=== PATIENT | male | born 1955 | race Caucasian/White ===

== ENCOUNTER 2017-07-04 11:27 | Inpatient (IN) | payer BC, OTHER ==
[2017-07-04] MEDS ORDERED: TUSSIONEX PENNKINETIC SUSP PO PRN (13:19)
[2017-07-04] MEDS ORDERED: NS 1/2 1000 ML IV 1,000 ML IV ONE (13:30)
[2017-07-04] MEDS: LEVAQUIN PREMIX IV 750 MG 750 MG/150 ML BAG IV SCH (13:53)
[2017-07-04] MEDS: NS 1/2 1000 ML IV 1,000 ML IV SCH (13:53)
[2017-07-04 13:54] LABS: BASOPHILS % (AUTO) 0.5 % (0.2-1.0); EOSINOPHILS # (AUTO) 0.5 x10^3/uL (0.0-0.2); EOSINOPHILS % (AUTO) 5.5 % (0.9-2.9); HEMATOCRIT 31.6 % (42.0-54.0); HEMOGLOBIN 10.9 g/dL (13.5-18.0); LYMPHOCYTES # (AUTO) 1.3 X10^3/uL (1.3-2.9); LYMPHOCYTES % (AUTO) 13.9 % (21.0-51.0); MEAN CORPUSCULAR HEMOGLOBIN 32.2 pg (27.0-34.0); MEAN CORPUSCULAR HGB CONC 34.5 g/dL (33.0-35.0); MEAN CORPUSCULAR VOLUME 93.4 fL (80.0-100.0); MEAN PLATELET VOLUME 7.2 fL (7.4-11.0); MONOCYTES # (AUTO) 0.9 x10^3/uL (0.3-0.8); MONOCYTES % (AUTO) 10.1 % (0.0-13.0); NEUTROPHILS # (AUTO) 6.5 x10^3/uL (2.2-4.8); PLATELET COUNT 239 X10^3/uL (150.0-450.0); RED BLOOD COUNT 3.38 X10^6/uL (4.7-6.0); RED CELL DISTRIBUTION WIDTH 13.6 % (11.6-16.5); WHITE BLOOD COUNT 9.3 X10^3/uL (3.6-10.0)
[2017-07-04] MEDS: FORTAZ or TAZICEF INJ 1 GM in NS 100 ML IV + SPIKE MINIBAG* 100 ML IV SCH ×2 (13:54→21:07)
[2017-07-04 14:03] LABS: ALANINE AMINOTRANSFERASE 14 Units/L (12-78); ALBUMIN 2.2 g/dL (3.4-5.0); ALKALINE PHOSPHATASE 116 Units/L (46-116); ASPARTATE AMINO TRANSFERASE 15 Units/L (15-37); BLOOD UREA NITROGEN 16 mg/dL (7-18); CALCIUM 9.2 mg/dL (8.5-10.1); CARBON DIOXIDE 28.2 mmol/L (21-32); CHLORIDE 102 mmol/L (98-107); COR CA(FOR HYPOALB) 10.6 mg/dL (8.5-10.1); COR NA(FOR HYPERGLY) 138 mmol/L (136-145); CREATININE 1.25 mg/dL (0.70-1.30); SODIUM 137 mmol/L (136-145); TOTAL PROTEIN 6.8 g/dL (6.4-8.2); eGFR BLACK RACES > 60 (>60); eGFR NON BLACK RACES > 60 (>60)
[2017-07-04] MEDS ORDERED: SALINE 3% 15 ML NEB TX ONE (14:14)
[2017-07-04 14:47] VITALS: BMI 30.2
[2017-07-04] MEDS ORDERED: PREVNAR 13 IM ONE (14:47)
[2017-07-04] MEDS ORDERED: FLUVIRIN IM ONE (14:47)
[2017-07-04] MEDS: DUONEB 0.5 MG/3 MG NEB SCH ×4 (16:38→20:45)
[2017-07-04] MEDS: ROBITUSSIN DM PO SCH ×2 (18:22→20:44)
--- NOTE | 2017-07-04 20:56 | DR.UPDATE ---
H&P Update History and Physical Update: WAS SEEN IN THE OFFICE TODAY. A H&P WAS COMPLETED PRIOR TO ADMISSION. PATIENT HAS BEEN SEEN AND EXAMINED WITH NO CHANGES NOTED TO H&P. Changes noted: NO Yes with the following:
[2017-07-05] MEDS: DUONEB 0.5 MG/3 MG NEB SCH ×6 (01:30→21:01)
[2017-07-05] MEDS: FORTAZ or TAZICEF INJ 1 GM in NS 100 ML IV + SPIKE MINIBAG* 100 ML IV SCH ×3 (05:00→22:27)
[2017-07-05] MEDS ORDERED: NS 1/2 1000 ML IV 1,000 ML IV ONE ×2 (05:06→17:12)
[2017-07-05] MEDS: NS 1/2 1000 ML IV 1,000 ML IV SCH ×2 (05:07→18:16)
[2017-07-05 06:09] LABS: BASOPHILS # (AUTO) 0.1 X10^3/uL (0.0-0.1); BASOPHILS % (AUTO) 0.6 % (0.2-1.0); EOSINOPHILS # (AUTO) 0.3 x10^3/uL (0.0-0.2); HEMATOCRIT 28.8 % (42.0-54.0); HEMOGLOBIN 9.9 g/dL (13.5-18.0); LYMPHOCYTES # (AUTO) 1.1 X10^3/uL (1.3-2.9); LYMPHOCYTES % (AUTO) 11.7 % (21.0-51.0); MEAN CORPUSCULAR HEMOGLOBIN 32.4 pg (27.0-34.0); MEAN CORPUSCULAR HGB CONC 34.6 g/dL (33.0-35.0); MEAN CORPUSCULAR VOLUME 93.6 fL (80.0-100.0); MEAN PLATELET VOLUME 7.5 fL (7.4-11.0); MONOCYTES # (AUTO) 1.1 x10^3/uL (0.3-0.8); MONOCYTES % (AUTO) 11.7 % (0.0-13.0); NEUTROPHILS # (AUTO) 6.8 x10^3/uL (2.2-4.8); PLATELET COUNT 216 X10^3/uL (150.0-450.0); RED BLOOD COUNT 3.07 X10^6/uL (4.7-6.0); RED CELL DISTRIBUTION WIDTH 13.5 % (11.6-16.5); WHITE BLOOD COUNT 9.3 X10^3/uL (3.6-10.0)
[2017-07-05 06:23] LABS: ALANINE AMINOTRANSFERASE 13 Units/L (12-78); ALBUMIN 1.8 g/dL (3.4-5.0); ALKALINE PHOSPHATASE 102 Units/L (46-116); ASPARTATE AMINO TRANSFERASE 16 Units/L (15-37); BLOOD UREA NITROGEN 18 mg/dL (7-18); CALCIUM 8.5 mg/dL (8.5-10.1); CARBON DIOXIDE 27.1 mmol/L (21-32); CHLORIDE 101 mmol/L (98-107); COR CA(FOR HYPOALB) 10.3 mg/dL (8.5-10.1); COR NA(FOR HYPERGLY) 135 mmol/L (136-145); CREATININE 1.11 mg/dL (0.70-1.30); SODIUM 135 mmol/L (136-145); eGFR BLACK RACES > 60 (>60); eGFR NON BLACK RACES > 60 (>60)
--- NOTE | 2017-07-05 06:25 | RAD ---
HISTORY: Shortness of breath Study: Chest AP portable Comparison: 07/04/2017 Findings: The heart is within normal limits in size. The janet are normal. The lungs are free of acute infiltrat es. No pleural effusions are identified. The bony thorax is unremarkable. IMPRESSION: No significant abnormality identified Reported By:
[2017-07-05] MEDS: ROBITUSSIN DM PO SCH ×4 (08:18→20:23)
[2017-07-05] MEDS: LEVAQUIN PREMIX IV 750 MG 750 MG/150 ML BAG IV SCH (08:18)
[2017-07-05] MEDS ORDERED: LASIX PO PRN (10:26)
[2017-07-05] MEDS ORDERED: PATIENT'S HOME MEDICATION (Benzonatate [Benzonatate] 1 CAP) PO SCH (10:30)
[2017-07-05] MEDS: ATARAX TAB 25 MG PO SCH (10:55)
[2017-07-05] MEDS: SINGULAIR TAB 10 MG PO SCH (10:56)
[2017-07-05] MEDS: NAPROSYN PO SCH ×2 (10:56→20:21)
[2017-07-05] MEDS: CYMBALTA PO SCH (10:59)
[2017-07-05] MEDS: LIPITOR TAB 20 MG PO SCH (10:59)
[2017-07-05] MEDS: NEURONTIN CAP 400 MG PO SCH (11:09)
[2017-07-05] MEDS ORDERED: GLUCOPHAGE ONE (19:30)
[2017-07-05] MEDS: LOPRESSOR TAB 50 MG PO SCH (20:21)
[2017-07-05] MEDS ORDERED: ZANAFLEX PO SCH (21:00)
[2017-07-05] MEDS ORDERED: GLUCOPHAGE PO SCH (21:00)
[2017-07-05] MEDS ORDERED: NEURONTIN CAP 400 MG PO SCH (21:00)
[2017-07-06] MEDS: DUONEB 0.5 MG/3 MG NEB SCH ×4 (00:17→12:07)
[2017-07-06] MEDS: FORTAZ or TAZICEF INJ 1 GM in NS 100 ML IV + SPIKE MINIBAG* 100 ML IV SCH (05:39)
[2017-07-06 06:08] LABS: BASOPHILS % (AUTO) 0.4 % (0.2-1.0); EOSINOPHILS # (AUTO) 0.5 x10^3/uL (0.0-0.2); EOSINOPHILS % (AUTO) 6.7 % (0.9-2.9); HEMATOCRIT 28.4 % (42.0-54.0); HEMOGLOBIN 9.9 g/dL (13.5-18.0); LYMPHOCYTES # (AUTO) 1.3 X10^3/uL (1.3-2.9); LYMPHOCYTES % (AUTO) 16.3 % (21.0-51.0); MEAN CORPUSCULAR HEMOGLOBIN 32.8 pg (27.0-34.0); MEAN CORPUSCULAR HGB CONC 34.8 g/dL (33.0-35.0); MEAN CORPUSCULAR VOLUME 94.1 fL (80.0-100.0); MEAN PLATELET VOLUME 7.5 fL (7.4-11.0); MONOCYTES # (AUTO) 0.9 x10^3/uL (0.3-0.8); MONOCYTES % (AUTO) 11.8 % (0.0-13.0); NEUTROPHILS # (AUTO) 5.1 x10^3/uL (2.2-4.8); NEUTROPHILS % (AUTO) 64.8 % (42.0-75.0); PLATELET COUNT 199 X10^3/uL (150.0-450.0); RED BLOOD COUNT 3.02 X10^6/uL (4.7-6.0); RED CELL DISTRIBUTION WIDTH 13.7 % (11.6-16.5); WHITE BLOOD COUNT 7.8 X10^3/uL (3.6-10.0)
[2017-07-06 06:42] LABS: ALANINE AMINOTRANSFERASE 11 Units/L (12-78); ALBUMIN 1.8 g/dL (3.4-5.0); ALKALINE PHOSPHATASE 96 Units/L (46-116); ASPARTATE AMINO TRANSFERASE 18 Units/L (15-37); BLOOD UREA NITROGEN 17 mg/dL (7-18); CALCIUM 8.3 mg/dL (8.5-10.1); CARBON DIOXIDE 24.9 mmol/L (21-32); CHLORIDE 101 mmol/L (98-107); COR CA(FOR HYPOALB) 10.1 mg/dL (8.5-10.1); COR NA(FOR HYPERGLY) 136 mmol/L (136-145); CREATININE 1.39 mg/dL (0.70-1.30); SODIUM 136 mmol/L (136-145); TOTAL PROTEIN 6.1 g/dL (6.4-8.2); eGFR BLACK RACES > 60 (>60); eGFR NON BLACK RACES 55 (>60)
--- NOTE | 2017-07-06 07:16 | RAD ---
HISTORY: Chest congestion Study: Chest AP portable Comparison: 07/05/2017 Findings: The heart is within normal limits in size. The janet are normal. The lungs are free of acute alveolar infiltrates. No pleural effusions are identified. The bony thorax is unremarkable. IMPRESSION: No significant abnormality identified Reported By:
[2017-07-06] MEDS ORDERED: FLOMAX PO SCH (09:00)
[2017-07-06] MEDS ORDERED: ASPIRIN EC 81 MG PO SCH (09:00)
[2017-07-06] MEDS: NS 1/2 1000 ML IV 1,000 ML IV SCH (09:40)
[2017-07-06] MEDS: LEVAQUIN PREMIX IV 750 MG 750 MG/150 ML BAG IV SCH (09:42)
[2017-07-06] MEDS: SINGULAIR TAB 10 MG PO SCH (09:42)
[2017-07-06] MEDS: LIPITOR TAB 20 MG PO SCH (09:42)
[2017-07-06] MEDS: NEURONTIN CAP 400 MG PO SCH ×2 (09:43→12:30)
[2017-07-06] MEDS: ROBITUSSIN DM PO SCH ×2 (09:43→12:31)
[2017-07-06] MEDS: ATARAX TAB 25 MG PO SCH (09:43)
[2017-07-06] MEDS: NAPROSYN PO SCH (09:43)
[2017-07-06] MEDS: LOPRESSOR TAB 50 MG PO SCH (09:43)
[2017-07-06] MEDS: CYMBALTA PO SCH (09:46)
--- NOTE | 2017-07-06 11:14 | PCM.PROG ---
Progress Note - Progress Note for Day of Date: 07/05/17 - Subjective Subjective: IS BEING TREATED FOR BRONCHOPNEUMONIA. TODAY, HE IS ALERT AND ORIENTED, SITTING UP IN BED ON MORNING ROUNDS. HE CONTINUES WITH A NON- PRODUCTIVE COUGH AND SHORTNESS OF BREATH. ON EXAMINATION, HEART IS REGULAR IN RATE AND RHYTHM. BILATERAL LUNGS ARE NOTED WITH WHEEZING AND RHONCHI THROUGHOUT. ABDOMEN IS ROUND, SOFT, AND NON-TENDER WITH NORMAL BOWEL SOUNDS NOTED IN ALL QUADRANTS. THERE IS NORMAL RANGE OF MOTION NOTED TO ALL EXTREMITIES. HIS VITALS THIS MORNING ARE 98.3-100-20-94%-176/86. LABS WERE OBTAINED THIS MORNING. ABNORMAL LAB VALUES INCLUDE THE FOLLOWING: RBC 3.07, HGB 9.9, HCT 28.8, SODIUM 135, GLUCOSE 118, TOTAL PROTEIN 6.0, ALBUMIN 1.8. SPUTUM CULTURE AND BLOOD CULTURES ARE PENDING. CHEST XRAY THIS MORNING IS STABLE. WE WILL CONTINUE WITH IV ANTIBIOTICS AND RESPIRATORY TREATMENTS TODAY. WE PLAN TO FOLLOW UP WITH AM LABS AND CONTINUE TO MONITOR PATIENT. - Past Medical Family Social History Past Med/Fam/Surg Hx: No changes since H&P Allergies: Allergies No Known Drug Allergies Allergy (Verified 07/04/17 13:11) - Review of Systems ROS: No change since H&P - Vital Signs and I&O's Vital Signs: Temperature 98.5 F Pulse Rate [Right Brachial] 83 Pulse Rate 83 Respiratory Rate 20 Blood Pressure [Right Arm] 157/93 Blood Pressure [Left Arm] 99/72 Blood Pressure 99/72 O2 Sat by Pulse Oximetry 96 Intake and Output: Intake & Output 07/03/17 07/04/17 07/05/17 07/06/17 11:59 11:59 11:59 11:59 Intake Total 1820 3500 Output Total 375 1595 Balance 1445 1905 - Physical Exam Oriented: Normal Eyes: Normal Ear: Normal Nose: Normal Throat: Normal Respiratory: Generalized, Wheezes, Rhonchi : Normal Auscultation: Bowel Sounds: Normal Palpation: Normal Tenderness: Normal Skin: Normal Musculoskeletal: Normal Psychiatric: Normal Mood Description: Calm Affect: Normal Speech Pattern: Clear, Appropriate - Laboratory and Diagnostics Result Diagrams: 07/06/17 05:15 07/06/17 05:15 Labs: 07/04/17 14:45 Sputum - Expectorated Sputum Sputum Culture - Final 07/04/17 14:45 Sputum - Expectorated Sputum - Final 07/04/17 13:38 Blood Blood Culture - Preliminary 07/04/17 13:35 Blood Blood Culture - Preliminary Laboratory WBC 7.8 X10^3/uL (3.6-10.0) 07/06/17 05:15 RBC 3.02 X10^6/uL (4.7-6.0) L 07/06/17 05:15 Hgb 9.9 g/dL (13.5-18.0) L 07/06/17 05:15 Hct 28.4 % (42.0-54.0) L 07/06/17 05:15 MCV 94.1 fL (80.0-100.0) 07/06/17 05:15 MCH 32.8 pg (27.0-34.0) 07/06/17 05:15 MCHC 34.8 g/dL (33.0-35.0) 07/06/17 05:15 RDW 13.7 % (11.6-16.5) 07/06/17 05:15 Plt Count 199 X10^3/uL (150.0-450.0) 07/06/17 05:15 MPV 7.5 fL (7.4-11.0) 07/06/17 05:15 Neut % 64.8 % (42.0-75.0) 07/06/17 05:15 Lymph % 16.3 % (21.0-51.0) L 07/06/17 05:15 [place]on % 11.8 % (0.0-13.0) 07/06/17 05:15 Eos % 6.7 % (0.9-2.9) H 07/06/17 05:15 Baso % 0.4 % (0.2-1.0) 07/06/17 05:15 Neut # 5.1 x10^3/uL (2.2-4.8) H 07/06/17 05:15 Lymph # 1.3 X10^3/uL (1.3-2.9) 07/06/17 05:15 [place]on # 0.9 x10^3/uL (0.3-0.8) H 07/06/17 05:15 Eos # 0.5 x10^3/uL (0.0-0.2) H 07/06/17 05:15 Baso # 0.0 X10^3/uL (0.0-0.1) 07/06/17 05:15 Absolute Nucleated RBC 0.1 /100WBC 07/06/17 05:15 Sodium 136 mmol/L (136-145) 07/06/17 05:15 Corrected Sodium 136 mmol/L (136-145) 07/06/17 05:15 Potassium 4.5 mmol/L (3.5-5.1) 07/06/17 05:15 Chloride 101 mmol/L (98-107) 07/06/17 05:15 Carbon Dioxide 24.9 mmol/L (21-32) 07/06/17 05:15 BUN 17 mg/dL (7-18) 07/06/17 05:15 Creatinine 1.39 mg/dL (0.70-1.30) H 07/06/17 05:15 Est GFR (MDRD) Af Amer > 60 (>60) 07/06/17 05:15 Est GFR (MDRD) Non-Af 55 (>60) L 07/06/17 05:15 Glucose 112 mg/dL (65-99) H 07/06/17 05:15 POC Glucose (mg/dL) 126 mg/dL (65-99) H 07/06/17 05:31 Calcium 8.3 mg/dL (8.5-10.1) L 07/06/17 05:15 Corrected Calcium 10.1 mg/dL (8.5-10.1) 07/06/17 05:15 Total Bilirubin 0.40 mg/dL (0.2-1.0) 07/06/17 05:15 AST 18 Units/L (15-37) 07/06/17 05:15 ALT 11 Units/L (12-78) L 07/06/17 05:15 Alkaline Phosphatase 96 Units/L (46-116) 07/06/17 05:15 Total Protein 6.1 g/dL (6.4-8.2) L 07/06/17 05:15 Albumin 1.8 g/dL (3.4-5.0) L 07/06/17 05:15 Globulin 4.3 g/dL (2.5-4.5) 07/06/17 05:15 Albumin/Globulin Ratio 0.4 Ratio (1.1-2.1) L 07/06/17 05:15 Influenza Type A (PCR) Negative (NEGATIVE) 07/04/17 14:22 Influenza Type B (PCR) Negative (NEGATIVE) 07/04/17 14:22 - Plan (1) Bronchopneumonia Status: Acute Plan: PNEUMONIA PROTOCOL, IV ANTIBIOTICS, RESPIRATORY TREATMENTS, CONTINUE TO MONITOR
[2017-07-06] MEDS ORDERED: CATAPRES TAB 0.1 MG PO ONE (12:20)
[2017-07-06 14:18] VITALS: BP 180/98
== END 2017-07-06 13:20 | disposition home or self-care (01) | DRG 195 ==
LOC: MED/SURG 11:27 → UNDOADMIN 11:27 → MED/SURG 12:30
PROVIDERS: ADMIT Internal Medicine; ATTEND Internal Medicine
DX: J18.0 Bronchopneumonia, unspecified organism (principal); R06.02 Shortness of breath; I10 Essential (primary) hypertension; E11.65 Type 2 diabetes mellitus with hyperglycemia; E78.2 Mixed hyperlipidemia
CPT/HCPCS: 36415; 71045; 80053; 85025; 87040; 87070; 87205; 87502; 94640; A4222; J0713; J1956; J7620

== ENCOUNTER 2017-07-09 08:46 | Emergency (ER) | payer OTHER ==
[2017-07-09 08:57] LABS: ABG ALLEN TEST POS; ABG BASE EXCESS -9.7 mmol/L (-2.0-2.0); ABG HCO3 16.6 mmol/L (22-26)
[2017-07-09] MEDS ORDERED: SOLU-Medrol 125 MG VIAL IVP ONE (08:57)
[2017-07-09] MEDS ORDERED: DUONEB 0.5 MG/3 MG NEB ONE (08:57)
[2017-07-09 08:58] VITALS: BMI 30.2
[2017-07-09] MEDS ORDERED: DUONEB 0.5 MG/3 MG ONE (09:00)
[2017-07-09] MEDS ORDERED: NS 1000 ML 1,000 ML IV SCH (09:00)
--- NOTE | 2017-07-09 09:00 | DR.SOBA ---
HPI - Time Seen Time seen: 08:50 - HPI Comment HPI Comment: PATIENT WITH RECENT PNEUMONIA WAS HOSPITALIZE AND DISCHARGE HOME SUNDAY. WORSE LAST NIGHT. CONFUSE TODAY. STOP BREATHING FOR FEW MINUTES ON HIS WAY TO ED. O2 SAT IN 70S ON NR. SOB. HAD INFLUENZA MAY THIS YEAR AND IS NOT FULLY RECOVER FROM IF. - Complaints Chief Complaint Doctors Comments: SOB, BRIEF RESPIRATORY ARREST DURING TRANSPORT. - Reviewed Nurses Notes Reviewed: Yes - Source History Provided: Patient, Family Member, EMS - Mode of Arrival Mode of Arrival: Stretcher - Duration Duration: Weeks - Context Onset:: At Rest PE Risk Factors:: None Currently on:: Inhaled Bronchodilators Prehospital Care:: Inhaled B2 - Modifying Factors Worsens:: Nothing Improves:: Nothing - Associated Signs and Symptoms Associated Signs and Symptoms: Cough, Chest Pain - If Chest Pain Quality: Sharp Location: Substernal - If Cough Cough: Yellow PMH - PMH Past Medical History: Diabetes, Dyslipidemia, Hypertension, Kidney Stones Past Surgical History: Yes Surgical History: Ortho Surgery, Tonsillectomy, Other - Family History Family Medical History: Diabetes Mellitus, Hypertension - Social History Do you use any recreational Drugs:: No ROS - Review of Systems Constitutional: Diaphoresis, Weakness, Fatigue. negative: Chills, Fever Eyes: negative: Eye Pain, Discharge ENTM: Nose Discharge, Nose Congestion. negative: Ear Pain, Throat Pain Respiratoy: Productive Cough, Short of Breath, Wheezing. negative: Hemoptysis Gastrointestinal/Abdominal: Abdominal Pain, Diarrhea, Nausea, Vomiting Genitourinary: negative: Dysuria, Frequency, Hematuria Neurological: Weakness, Dizziness Musculoskeletal: Muscle Pain Integumentary: Dryness Hematologic/Lymphatic: No Symptoms Reported Endocrine: No Symptoms Reported All Other Systems: Reviewed and Negative PE - Vital Signs Vitals: Temperature 97.5 F Pulse Rate [Apical] 80 Pulse Rate 86 Respiratory Rate 25 Blood Pressure [Right Arm] 115/71 Blood Pressure [Left Arm] 172/95 Blood Pressure 223/125 O2 Sat by Pulse Oximetry 99 - General General Appearance: Alert, In No Apparent Distress - Head Head Exam: Normal Inspection - Eyes Eye exam: Normal Appearance - ENT ENT Exam: Normal External Ear Exam - Neck Neck Exam: Trachea Midline. negative: Tenderness, Meningismus, Lymphadenopathy - Chest Chest Inspection: Symmetric Chest Wall Rise - Respiratory Respiratory Exam: Respiratory Distress Respiratory Exam: Bilateral Wheezing, Bilateral Rhonchi, Upper Wheezing, Upper Rhonchi, Lower Wheezing, Lower Rhonchi - Cardiovascular Cardiovascular Exam: Regular Rate, Normal Rhythm, Normal Heart Sounds - Abdominal Exam Abdominal Exam: Normal Bowel Sounds, Soft. negative: Tenderness - Extremities Extremities Exam: Edema (TRACE4) - Back Back Exam: Normal Inspection - Neurologic Neurological Exam: Alert, Oriented X3, Other MDM - Additional Information Obtained Additional Information Obtained From: Family - Differential Diagnosis Differential Diagnosis: Bronchitis, CHF, COPD, Mycardial Infarction, Pneumonia, Respiratory Insufficiency Differential Diagnosis Comment:: SEPSIS Course - Treatment Treatment: NEB TREATMENT AND SOLUMEDROL IN ED. 50% O2 AT 95% SAT. CEFTAZIDINE AND ZOSYN GIVEN IN ED. - Consultation Consultation Comments: DISCUSS PATIENT WITH [facility]. HE ACCEPTED PATIENT FOR TRANSFER. - Education/Counseling Education/Counseling: Patient, Family, Education Educated On: Treatment, Diagnosis ROR - Labs Reviewed Laboratory Results Reviewed?: Yes Result Diagrams: 07/09/17 09:00 07/09/17 09:00 Laboratory: 07/09/17 10:56 Sputum - Expectorated Sputum - Final WBC 14.1 X10^3/uL (3.6-10.0) H 07/09/17 09:00 RBC 3.19 X10^6/uL (4.7-6.0) L 07/09/17 09:00 Hgb 10.3 g/dL (13.5-18.0) L 07/09/17 09:00 Hct 30.8 % (42.0-54.0) L 07/09/17 09:00 MCV 96.6 fL (80.0-100.0) 07/09/17 09:00 MCH 32.2 pg (27.0-34.0) 07/09/17 09:00 MCHC 33.4 g/dL (33.0-35.0) 07/09/17 09:00 RDW 13.5 % (11.6-16.5) 07/09/17 09:00 Plt Count 265 X10^3/uL (150.0-450.0) 07/09/17 09:00 MPV 7.4 fL (7.4-11.0) 07/09/17 09:00 Neut % 80.5 % (42.0-75.0) H 07/09/17 09:00 Lymph % 10.8 % (21.0-51.0) L 07/09/17 09:00 [place]y % 8.0 % (0.0-13.0) 07/09/17 09:00 Eos % 0.3 % (0.9-2.9) L 07/09/17 09:00 Baso % 0.4 % (0.2-1.0) 07/09/17 09:00 Neut # 11.4 x10^3/uL (2.2-4.8) H 07/09/17 09:00 Lymph # 1.5 X10^3/uL (1.3-2.9) 07/09/17 09:00 [place] # 1.1 x10^3/uL (0.3-0.8) H 07/09/17 09:00 Eos # 0.0 x10^3/uL (0.0-0.2) 07/09/17 09:00 Baso # 0.1 X10^3/uL (0.0-0.1) 07/09/17 09:00 Absolute Nucleated RBC 0.3 /100WBC 07/09/17 09:00 Sample Site Lra 07/09/17 08:55 ABG pH 7.260 (7.35-7.45) L 07/09/17 08:55 ABG pCO2 37.0 mmHg (35.0-45.0) 07/09/17 08:55 ABG pO2 74.0 mmHg (80.0-100.0) L 07/09/17 08:55 ABG HCO3 16.6 mmol/L (22-26) L* 07/09/17 08:55 ABG O2 Saturation 92.0 % (90-100) 07/09/17 08:55 ABG Base Excess -9.7 mmol/L (-2.0-2.0) L 07/09/17 08:55 Devan Test Pos 07/09/17 08:55 A-a Gradient 593.0 mmHg 07/09/17 08:55 FiO2 100.000 07/09/17 08:55 Blood Gas Comments Karan well cs 07/09/17 08:55 Sodium 132 mmol/L (136-145) L 07/09/17 09:00 Corrected Sodium 134 mmol/L (136-145) L 07/09/17 09:00 Potassium 5.9 mmol/L (3.5-5.1) H 07/09/17 09:00 Chloride 97 mmol/L (98-107) L 07/09/17 09:00 Carbon Dioxide 19.2 mmol/L (21-32) L 07/09/17 09:00 BUN 31 mg/dL (7-18) H 07/09/17 09:00 Creatinine 2.46 mg/dL (0.70-1.30) H 07/09/17 09:00 Est GFR (MDRD) Af Amer 35 (>60) L 07/09/17 09:00 Est GFR (MDRD) Non-Af 29 (>60) L 07/09/17 09:00 Glucose 165 mg/dL (65-99) H 07/09/17 09:00 Lactic Acid 3.1 mmol/L (0.4-2.0) H 07/09/17 09:00 Calcium 9.2 mg/dL (8.5-10.1) 07/09/17 09:00 Corrected Calcium 10.7 mg/dL (8.5-10.1) H 07/09/17 09:00 Total Bilirubin 0.80 mg/dL (0.2-1.0) 07/09/17 09:00 AST 62 Units/L (15-37) H 07/09/17 09:00 ALT 26 Units/L (12-78) 07/09/17 09:00 Alkaline Phosphatase 137 Units/L (46-116) H 07/09/17 09:00 Creatine Kinase 45 Units/L (39-308) 07/09/17 09:00 CK-MB (CK-2) 2.6 ng/mL (0-4.0) 07/09/17 09:00 CK/CKMB % Calc 5.8 % (<4) 07/09/17 09:00 Troponin I 0.09 ng/mL (0-1.5) 07/09/17 09:00 B-Natriuretic Peptide 1700 pg/mL (0-79) H* 07/09/17 09:00 Total Protein 7.0 g/dL (6.4-8.2) 07/09/17 09:00 Albumin 2.1 g/dL (3.4-5.0) L 07/09/17 09:00 Globulin 4.9 g/dL (2.5-4.5) H 07/09/17 09:00 Albumin/Globulin Ratio 0.4 Ratio (1.1-2.1) L 07/09/17 09:00 Acetone, Semi-Quant Small (NEGATIVE) H 07/09/17 09:00 - XRAY XRAY Interpreted by: Radiologist XRAY Findings: REPORT DISCUSS WITH PATIENT AND HIS . - EKG Rhythm: NSR (EKG NOTED) - Diagnosis Discharge Problem: Respiratory insufficiency, Abnormal cardiac enzyme level Pneumonia Qualifiers: Pneumonia type: due to unspecified organism Laterality: right Lung location: lower lobe of lung Qualified Code(s): J18.1 - Lobar pneumonia, unspecified organism Sepsis Qualifiers: Sepsis type: sepsis due to unspecified organism Qualified Code(s): A41.9 - Sepsis, unspecified organism - Discharge Plan Disposition: [facility] Condition: Stable - Follow ups/Referrals Follow ups/Referrals: Jefferson Bradford [Primary Care Provider] - 3 days - Instructions
[2017-07-09] MEDS ORDERED: LOPRESSOR TAB 50 MG PO ONE (09:03)
[2017-07-09] MEDS ORDERED: SOLU-Medrol 125 MG VIAL ONE (09:06)
[2017-07-09 09:18] LABS: BASOPHILS # (AUTO) 0.1 X10^3/uL (0.0-0.1); BASOPHILS % (AUTO) 0.4 % (0.2-1.0); EOSINOPHILS % (AUTO) 0.3 % (0.9-2.9); HEMATOCRIT 30.8 % (42.0-54.0); HEMOGLOBIN 10.3 g/dL (13.5-18.0); LYMPHOCYTES # (AUTO) 1.5 X10^3/uL (1.3-2.9); LYMPHOCYTES % (AUTO) 10.8 % (21.0-51.0); MEAN CORPUSCULAR HEMOGLOBIN 32.2 pg (27.0-34.0); MEAN CORPUSCULAR HGB CONC 33.4 g/dL (33.0-35.0); MEAN CORPUSCULAR VOLUME 96.6 fL (80.0-100.0); MEAN PLATELET VOLUME 7.4 fL (7.4-11.0); MONOCYTES # (AUTO) 1.1 x10^3/uL (0.3-0.8); NEUTROPHILS # (AUTO) 11.4 x10^3/uL (2.2-4.8); NEUTROPHILS % (AUTO) 80.5 % (42.0-75.0); PLATELET COUNT 265 X10^3/uL (150.0-450.0); RED BLOOD COUNT 3.19 X10^6/uL (4.7-6.0); RED CELL DISTRIBUTION WIDTH 13.5 % (11.6-16.5); WHITE BLOOD COUNT 14.1 X10^3/uL (3.6-10.0)
[2017-07-09 09:36] LABS: ALBUMIN 2.1 g/dL (3.4-5.0); CALCIUM 9.2 mg/dL (8.5-10.1); CARBON DIOXIDE 19.2 mmol/L (21-32); CKMB % 5.8 % (<4); COR CA(FOR HYPOALB) 10.7 mg/dL (8.5-10.1); CREATINE KINASE MB 2.6 ng/mL (0-4.0); CREATININE 2.46 mg/dL (0.70-1.30); TROPONIN I 0.09 ng/mL (0-1.5)
--- NOTE | 2017-07-09 09:38 | RAD ---
HISTORY: Shortness of breath Study: Single-view chest Comparison: 07/06/2017 Findings: The trachea is midline. The cardiac silhouette is enlarged in size. There has been interval developme nt of patchy airspace opacities within the mid right lung and right lung base, concerning for pneumon ia. The bony thorax is grossly intact. IMPRESSION: 1. Interval development of patchy infiltrates within the right lung, concerning for pneumonia. Reported By:
[2017-07-09] MEDS ORDERED: FORTAZ or TAZICEF INJ 1 GM in NS 100 ML IV + SPIKE MINIBAG* 100 ML IV ONE (09:46)
[2017-07-09] MEDS ORDERED: FORTAZ or TAZICEF INJ ONE (09:48)
[2017-07-09] MEDS ORDERED: NS 100 ML IV + SPIKE MINIBAG* 100 ML IV ONE ×2 (09:49→12:29)
[2017-07-09] MEDS ORDERED: ZOSYN VIAL 3.375 GM 3.375 GM in NS 100 ML IV + SPIKE MINIBAG* 100 ML IV ONE (12:23)
[2017-07-09] MEDS ORDERED: ZOSYN VIAL 3.375 GM IV ONE (12:30)
[2017-07-09 12:51] VITALS: BP 172/95
== END 2017-07-09 12:53 | disposition short-term general hospital (02) ==
LOC: ER 08:46
DX: J18.1 Lobar pneumonia, unspecified organism (principal); A41.9 Sepsis, unspecified organism; R06.89 Other abnormalities of breathing; R06.02 Shortness of breath; R74.8 Abnormal levels of other serum enzymes; R94.31 Abnormal electrocardiogram [ECG] [EKG]
CPT/HCPCS: 36415; 36600; 71045; 80053; 82009; 82550; 82553; 82803; 83605; 83880; 84484; 85025; 87040; 87070; 87205; 93005; 93010; 94640; 96365; 96367; 96374; 96375; 99285; A4222; J0713; J2543; J2930; J7620